=== PATIENT | male | born 2000 | race Two or more races ===

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

== ENCOUNTER 2022-07-04 13:28 | Emergency (ER) | payer OTHER ==
[~2022-07-04] VITALS: Ht 185.4 cm; Wt 68.2 kg
[2022-07-04] MEDS ORDERED: HYDROCODONE/ACETAMINOPHEN 5-325 MG TABLET PO ONE (14:45)
[2022-07-04] MEDS ORDERED: IBUPROFEN 600 MG TABLET PO ONE (14:45)
[2022-07-04] MEDS ORDERED: LIDOCAINE 1% 10 ML VIAL SQ ONE (14:45)
[2022-07-04] MEDS ORDERED: PERTUSS(ACELL),DIPH,TET VAC/PF 0.5 ML SYRINGE IM. ONE (15:15)
[2022-07-04 15:43] VITALS: BP 137/81
[2022-07-04] MEDS ORDERED: CEPH-558 PO (15:45)
[2022-07-04] MEDS ORDERED: BACITRACIN 28 GM OINTMENT TP ONE (15:45)
== END 2022-07-04 17:09 | disposition home or self-care (01) ==
LOC: EMS 13:28
DX: S66.320A Laceration of extensor muscle, fascia and tendon of right index finger at wrist and hand level, initial encounter (principal); W22.8XXA Striking against or struck by other objects, initial encounter; Y93.89 Activity, other specified; Y92.89 Other specified places as the place of occurrence of the external cause; Y99.8 Other external cause status
CPT/HCPCS: 99283; 90715; 90471; 12001; J3490